=== PATIENT | female | born 1965 | race Caucasian/White ===

== ENCOUNTER 2017-05-18 10:00 | Day surgery (SDC) | payer OTHER ==
[~2017-05-18] VITALS: Ht 160 cm; Wt 133.8 kg
[~2017-05-18 10:00] MED LIST: 0.9% Sodium Chloride 1,000 ML IV SCH; ASPI-973 PO; ATRV10T PO; FEXO-123 PO; HYG25 PO; INSU100I13 SUBQ; INSU200I SQ; LIRA0.6P2 SQ; METO-272 PO; NYST1POW23 MC; OMEG-38 PO; PHEN15CA67 PO; PIOG30TA26 PO; SERT50TA9 PO; Sodium Chloride LOK Flush 10 mL Syringe IV PRN; TELM40TA4 PO; TOPI50TA88 PO; fentaNYL-PF 50 mCg/mL 2 mL Inj IVPUSH PRN
[2017-05-18 10:59] VITALS: BP 126/69; PULSE 90; RESP 16; O2SAT 97
[2017-05-18 12:23] VITALS: BP 120/65; PULSE 85; O2SAT 98
[2017-05-18 12:30] VITALS: BP 118/64; PULSE 85; O2SAT 99
--- NOTE | 2017-05-18 14:15 | ENDO ---
[address] [address] ENDOSCOPY PROCEDURE PATIENT: JOSE MANUEL SHI : 1965 MR#: [id number] ADMIT: 05/18/2017 JOB ID: [id number] DATE: 05/18/2017 PROCEDURE: Colonoscopy. INDICATIONS: Screening. The patient's ASA classification is 2. Mallampati score is 3. MEDICATIONS: 1. Versed 6 mg. 2. Fentanyl 125 mcg. INSTRUMENT USED: PCF H 180 AL. PREPARATION QUALITY: Was good. PROCEDURE DETAILS: After informed consent was obtained, the patient was brought into the GI suite, where she was placed on oxygen via nasal cannula and monitored with continuous pulse oximeter, telemetry and blood pressure monitoring. A time-out was performed. Then, she was placed in the left lateral decubitus position and medications were administered for sedation. Digital rectal examination was performed, which was unremarkable. The colonoscope was then inserted into the rectum and advanced under direct visualization to the cecum, which was identified by the presence of the appendiceal orifice and ileocecal valve. Once the cecum was reached, colonoscope was withdrawn back into the rectum and mucosa and lumen were examined. In the rectum, retroflexion was performed. Following retroflexion, remaining air in the rectum was suctioned, and procedure was completed. FINDINGS: At the appendiceal orifice, there was an approximately 6-7 mm sessile polyp that was removed with a hot snare. Following removal, there was bleeding at the polypectomy site. I initially attempted to cauterize the area with the tip of the snare. However, this was not successful and, therefore, two hemoclips were placed and following this there was resolution of bleeding at the polypectomy site. The site was then irrigated and observed. The scope was then withdrawn back into the rectum as the mucosa and lumen were examined. In the rectum, retroflexion was performed. Following retroflexion, remaining air in the rectum was suctioned, and the procedure was completed. RECOMMENDATIONS: 1. Avoid NSAIDs and anticoagulants for 72 hours. 2. Repeat colonoscopy in five years. COMPLICATIONS: Bleeding approximately 10-15 mL.
--- NOTE | 2017-05-21 19:41 | PATH ---
SURGICAL PATHOLOGY Attending Physician:Ari Adams CASE STATUS: Signed Out PATIENT NAME: JOSE MANUEL SHI PID: [id number] : 1965 DATE COLLECTED:05/18/2017 22:40 SPECIMEN: Colon, Polyp CLINICAL HISTORY: 1). 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 ICD10 K63.5 GROSS DESCRIPTION: The specimen is received in one formalin filled container labeled with the patient's name, sublabeled "MALLIKA APPENDICEAL POLYP" and consists of 2 portions of tissue which aggregate to 0.4 x 0.4 x 0.3 CM. The specimen is entirely submitted in one cassette. 05/18/2017DC MICRO DESCRIPTION: See diagnosis. ICD-9 CODES: CPT CODES: 1: 69864 Electronically Signed Out Latoya Rueda MD [facility] Pathology [facility] [address], [place] [address] Technical component performed at [facility], [address] [place] [address] Ave[address], [place], [address]
== END 2017-05-18 23:59 | disposition home or self-care (01) ==
LOC: END 10:00
PROVIDERS: ATTEND Internal Medicine Gastroenterology
DX: Z12.11 Encounter for screening for malignant neoplasm of colon (principal); Z83.71 Family history of colonic polyps; D12.0 Benign neoplasm of cecum; I10 Essential (primary) hypertension; E11.9 Type 2 diabetes mellitus without complications; E78.00 Pure hypercholesterolemia, unspecified; E78.5 Hyperlipidemia, unspecified; F41.9 Anxiety disorder, unspecified; E66.01 Morbid (severe) obesity due to excess calories; Z79.82 Long term (current) use of aspirin; Z79.4 Long term (current) use of insulin; Z68.43 Body mass index [BMI] 50.0-59.9, adult
CPT/HCPCS: 45385; 99153; G0500; J2250; J3010; J7030